=== PATIENT | male | born 1995 | race African-American/Black ===

== ENCOUNTER 2017-01-30 10:29 | Emergency (ER) | payer OTHER, SELFPAY | END 2017-01-30 11:00 | disposition home or self-care (01) | LOC: ERS 10:29 | DX: S40.011A Contusion of right shoulder, initial encounter (principal); F17.210 Nicotine dependence, cigarettes, uncomplicated; X50.1XXA Overexertion from prolonged static or awkward postures, initial encounter | CPT/HCPCS: 99283 ==